=== PATIENT | female | born 1980 | race Caucasian/White ===

== ENCOUNTER 2016-08-01 12:42 | Emergency (ER) | payer OTHER ==
[~2016-08-01] VITALS: Ht 170.2 cm; Wt 111.4 kg
[2016-08-01] MEDS ORDERED: INSREG SQ (12:50)
[2016-08-01] MEDS ORDERED: INSLAN SQ (12:50)
[2016-08-01] MEDS ORDERED: LISI-662 PO (12:50)
[2016-08-01 13:05] LABS: GLUCOSE,POINT OF CARE 461 MG/DL (70-110)
[2016-08-01] MEDS ORDERED: LISINOPRIL 10 MG TABLET PO ONE (14:45)
[2016-08-01] MEDS ORDERED: AcetaZOLAMIDE 250 MG TABLET PO ONE (15:15)
[2016-08-01] MEDS ORDERED: TIMOLOL MALEATE 0.5% 5 ML OPHTHALMIC SOLUTION OS ONE (15:15)
[2016-08-01 18:32] VITALS: BP 175/89
== END 2016-08-01 18:36 | disposition home or self-care (01) ==
LOC: EMS 12:42
DX: H57.12 Ocular pain, left eye (principal); I10 Essential (primary) hypertension; E11.9 Type 2 diabetes mellitus without complications; Z79.2 Long term (current) use of antibiotics; Z91.018 Allergy to other foods
CPT/HCPCS: 82962; 99284

== ENCOUNTER 2017-01-25 13:04 | Inpatient (IN) | payer OTHER ==
[~2017-01-25] VITALS: Ht 170.2 cm; Wt 113.4 kg
[~2017-01-25 13:04] MED LIST: INSLAN SQ; INSREG SQ; LISI-662 PO
[2017-01-25 13:12] LABS: GLUCOSE,POINT OF CARE 339 MG/DL (70-110)
[2017-01-25 13:42] LABS: BASOPHILS % (AUTO) 0.3 % (0.0-2.0); EOSINOPHILS % (AUTO) 0 % (1.0-6.0); HEMATOCRIT 37.2 % (36-46); HEMOGLOBIN 12.8 g/dL (12.0-16.0); LYMPHOCYTES # (AUTO) 1.3 K/uL (1.0-4.8); LYMPHOCYTES % (AUTO) 14.1 % (22.0-44.0); MEAN CORPUSCULAR HEMOGLOBIN 29.1 pg (26.0-34.0); MEAN CORPUSCULAR HGB CONC 34.4 G/dL (31.0-37.0); MEAN CORPUSCULAR VOLUME 84 fL (80-100); MONOCYTES # (AUTO) 0.4 K/uL (0.1-1.0); MONOCYTES % (AUTO) 4.8 % (2.0-9.0); NEUTROPHILS # (AUTO) 7.3 K/uL (1.8-7.7); NEUTROPHILS % (AUTO) 80.8 % (40.0-70.0); PLATELET COUNT (AUTO) 300 K/uL (150-450); RED CELL DISTRIBUTION WIDTH 12.7 % (11.5-14.5)
[2017-01-25 13:54] LABS: ANION GAP 14 mmol/L (8-16); CALCIUM, TOTAL 9.1 mg/dL (8.8-10.5); CARBON DIOXIDE 26 mmol/L (22-29); CHLORIDE 101 mmol/L (98-107); CREATININE 0.76 mg/dL (0.60-1.30); GLOMERULAR FILTR. RATE CALC > 60 mL/min (>60); POTASSIUM 4.3 mmol/L (3.5-5.1); SODIUM SERUM 141 mmol/L (136-145); UREA NITROGEN, BLOOD 10 mg/dL (7-18)
[2017-01-25 13:59] LABS: ALANINE AMINOTRANSFERASE 28 U/L (12-78); ALBUMIN 3.3 g/dL (3.4-5.0); ASPARTATE AMINOTRANSFERASE 20 U/L (15-37); BILIRUBIN,TOTAL 0.4 mg/dL (0.1-1.0); TOTAL PROTEIN, SERUM 7.4 g/dL (6.4-8.2)
[2017-01-25] MEDS ORDERED: CLOPIDOGREL BISULFATE 75 MG TABLET PO ONE (15:45)
[2017-01-25] MEDS ORDERED: ASPIRIN 81 MG CHEWABLE TABLET PO ONE (15:45)
[2017-01-25] MEDS ORDERED: LISINOPRIL 10 MG TABLET PO ONE (15:45)
[2017-01-25] MEDS ORDERED: ACETAMINOPHEN 325 MG TABLET PO PRN ×2 (16:15)
[2017-01-25] MEDS ORDERED: HydrALAZINE HCL 20 MG/ML VIAL IVP ONE (16:15)
[2017-01-25] MEDS: AmLODIPine BESYLATE 10 MG TABLET PO SCH (16:15)
[2017-01-25] MEDS ORDERED: DEXTROSE 50%-WATER 25 GM/50 ML SYRINGE IVP PRN ×2 (16:15)
[2017-01-25] MEDS ORDERED: INSULIN REGULAR, HUMAN 100 UNITS/ML SQ PRN (16:15)
[2017-01-25] MEDS ORDERED: ONDANSETRON HCL 4 MG/2 ML VIAL IVP PRN (16:15)
[2017-01-25 16:27] LABS: GLUCOSE,POINT OF CARE 283 MG/DL (70-110)
[2017-01-25] MEDS: ATORVASTATIN CALCIUM 20 MG TABLET PO SCH (16:36)
[2017-01-25 18:25] VITALS: BP 146/71
[2017-01-25 19:36] VITALS: BP 152/77
[2017-01-25] MEDS: DOCUSATE SODIUM 100 MG CAPSULE PO SCH (20:45)
[2017-01-25] MEDS: INSULIN DETEMIR 100 UNITS/ML SQ SCH (21:33)
[2017-01-25] MEDS: INSULIN ASPART 100 UNITS/ML SQ PRN (21:34)
[2017-01-25] MEDS: HEPARIN SODIUM,PORCINE 5,000 UNITS/ML VIAL SQ SCH (23:46)
[2017-01-26] VITALS (7 sets, daily range): BP systolic 123–160; BP diastolic 79–103
[2017-01-26] MEDS: INSULIN ASPART 100 UNITS/ML SQ PRN ×4 (06:21→21:33)
[2017-01-26] MEDS ORDERED: PNEUMOCOCCAL VACCINE POLYVALENT 0.5 ML VIAL [PPSV23] IM ONE (07:45)
[2017-01-26] MEDS: ASPIRIN 81 MG CHEWABLE TABLET PO SCH (08:19)
[2017-01-26] MEDS: PANTOPRAZOLE SODIUM 40 MG DR TABLET PO SCH (08:19)
[2017-01-26] MEDS: HEPARIN SODIUM,PORCINE 5,000 UNITS/ML VIAL SQ SCH ×3 (08:19→23:55)
[2017-01-26] MEDS: AmLODIPine BESYLATE 10 MG TABLET PO SCH (08:19)
[2017-01-26] MEDS: ATORVASTATIN CALCIUM 20 MG TABLET PO SCH (08:19)
[2017-01-26] MEDS: DOCUSATE SODIUM 100 MG CAPSULE PO SCH ×2 (08:20→20:16)
[2017-01-26] MEDS ORDERED: LISINOPRIL 20 MG TABLET PO SCH (09:00)
[2017-01-26] MEDS: OxyCODONE HCL/ACETAMINOPHEN 5-325 MG TABLET PO PRN ×2 (12:02→18:34)
[2017-01-26 13:32] LABS: GLUCOSE,POINT OF CARE 391 MG/DL (70-110)
[2017-01-26] MEDS ORDERED: LISINOPRIL 20 MG TABLET PO ONE (16:00)
[2017-01-26] MEDS: CloNIDine HCL 0.1 MG TABLET PO PRN (16:03)
[2017-01-26] MEDS: MAGNESIUM HYDROXIDE SUSPENSION 30 ML UDCUP PO PRN (20:17)
[2017-01-26] MEDS: INSULIN DETEMIR 100 UNITS/ML SQ SCH (21:34)
[2017-01-27] VITALS (8 sets, daily range): BP systolic 119–160; BP diastolic 77–111
[2017-01-27] MEDS: INSULIN ASPART 100 UNITS/ML SQ PRN ×4 (06:10→21:32)
[2017-01-27] MEDS: LISINOPRIL 20 MG TABLET PO SCH (07:57)
[2017-01-27] MEDS: CloNIDine HCL 0.1 MG TABLET PO PRN (07:57)
[2017-01-27] MEDS: HEPARIN SODIUM,PORCINE 5,000 UNITS/ML VIAL SQ SCH ×3 (07:57→23:41)
[2017-01-27] MEDS: ASPIRIN 81 MG CHEWABLE TABLET PO SCH (07:57)
[2017-01-27] MEDS: DOCUSATE SODIUM 100 MG CAPSULE PO SCH ×2 (07:57→19:39)
[2017-01-27] MEDS: PANTOPRAZOLE SODIUM 40 MG DR TABLET PO SCH (07:57)
[2017-01-27] MEDS: ATORVASTATIN CALCIUM 20 MG TABLET PO SCH (07:57)
[2017-01-27] MEDS: OxyCODONE HCL/ACETAMINOPHEN 5-325 MG TABLET PO PRN ×2 (07:58→15:34)
[2017-01-27 08:07] LABS: GLUCOSE COMMENT 1 Received Meds; GLUCOSE,POINT OF CARE 266 MG/DL (70-110)
[2017-01-27] MEDS: AmLODIPine BESYLATE 10 MG TABLET PO SCH (08:59)
[2017-01-27 10:53] LABS: HEMOGLOBIN A1C 12.5 % (4.5-6.2)
[2017-01-27 11:04] LABS: THYROID STIMULATING HORMONE 1.22 uIU/mL (0.36-3.74)
[2017-01-27 18:13] LABS: GLUCOSE,POINT OF CARE 298 MG/DL (70-110)
[2017-01-27] MEDS: MAGNESIUM HYDROXIDE SUSPENSION 30 ML UDCUP PO PRN (19:39)
[2017-01-27] MEDS: CloNIDine HCL 0.1 MG TABLET PO SCH (19:39)
[2017-01-27] MEDS: INSULIN DETEMIR 100 UNITS/ML SQ SCH (21:30)
[2017-01-28 01:17] LABS: GLUCOSE,POINT OF CARE 286 MG/DL (70-110)
[2017-01-28 04:33] VITALS: BP 126/85
[2017-01-28] MEDS: INSULIN ASPART 100 UNITS/ML SQ PRN ×4 (06:03→20:11)
[2017-01-28 06:22] LABS: GLUCOSE COMMENT 1 Received Meds; GLUCOSE,POINT OF CARE 221 MG/DL (70-110)
[2017-01-28 07:09] VITALS: BP 164/100
[2017-01-28 07:14] LABS: BASOPHILS # (AUTO) 0.02 K/uL (0.00-0.20); BASOPHILS % (AUTO) 0.2 % (0.0-2.0); EOSINOPHILS # (AUTO) 0.03 K/uL (0.00-0.70); EOSINOPHILS % (AUTO) 0.36 % (1.0-6.0); HEMATOCRIT 37.4 % (36-46); HEMOGLOBIN 12.4 g/dL (12.0-16.0); LYMPHOCYTES # (AUTO) 2.1 K/uL (1.0-4.8); LYMPHOCYTES % (AUTO) 22.4 % (22.0-44.0); MEAN CORPUSCULAR HEMOGLOBIN 28.9 pg (26.0-34.0); MEAN CORPUSCULAR HGB CONC 33.2 G/dL (31.0-37.0); MEAN CORPUSCULAR VOLUME 87 fL (80-100); MONOCYTES # (AUTO) 0.6 K/uL (0.1-1.0); NEUTROPHILS # (AUTO) 6.7 K/uL (1.8-7.7); NEUTROPHILS % (AUTO) 71.1 % (40.0-70.0); PLATELET COUNT (AUTO) 218 K/uL (150-450); RED CELL DISTRIBUTION WIDTH 12.9 % (11.5-14.5)
[2017-01-28 07:17] LABS: RBC MORPHOLOGY COMMENT NORMAL RBC MORPH; WHITE BLOOD COUNT (AUTO) 11.9 K/uL (4.5-11.0)
[2017-01-28 07:20] LABS: ANION GAP 5 mmol/L (8-16); CALCIUM, TOTAL 8.9 mg/dL (8.8-10.5); CARBON DIOXIDE 31 mmol/L (22-29); CHLORIDE 101 mmol/L (98-107); CREATININE 0.62 mg/dL (0.60-1.30); GLOMERULAR FILTR. RATE CALC > 60 mL/min (>60); POTASSIUM 3.8 mmol/L (3.5-5.1); SODIUM SERUM 137 mmol/L (136-145); UREA NITROGEN, BLOOD 7 mg/dL (7-18)
[2017-01-28] MEDS ORDERED: ONDANSETRON HCL 4 MG/2 ML VIAL IM PRN (08:15)
[2017-01-28] MEDS: LISINOPRIL 20 MG TABLET PO SCH (08:16)
[2017-01-28] MEDS: PANTOPRAZOLE SODIUM 40 MG DR TABLET PO SCH (08:16)
[2017-01-28] MEDS: ATORVASTATIN CALCIUM 20 MG TABLET PO SCH (08:16)
[2017-01-28] MEDS: DOCUSATE SODIUM 100 MG CAPSULE PO SCH ×2 (08:16→20:10)
[2017-01-28] MEDS: ASPIRIN 81 MG CHEWABLE TABLET PO SCH (08:16)
[2017-01-28] MEDS: HEPARIN SODIUM,PORCINE 5,000 UNITS/ML VIAL SQ SCH ×2 (08:16→15:25)
[2017-01-28] MEDS: AmLODIPine BESYLATE 10 MG TABLET PO SCH (08:17)
[2017-01-28] MEDS: CloNIDine HCL 0.1 MG TABLET PO SCH ×2 (08:17→20:10)
[2017-01-28] MEDS: ONDANSETRON HCL 4 MG/2 ML VIAL IVP PRN ×2 (08:18→15:19)
[2017-01-28 11:18] LABS: GLUCOSE,POINT OF CARE 281 MG/DL (70-110)
[2017-01-28 11:18] LABS: GLUCOSE,POINT OF CARE 344 MG/DL (70-110)
[2017-01-28 11:22] LABS: GLUCOSE,POINT OF CARE 327 MG/DL (70-110)
[2017-01-28 11:22] LABS: GLUCOSE COMMENT 1 Received Meds; GLUCOSE,POINT OF CARE 241 MG/DL (70-110)
[2017-01-28 11:57] VITALS: BP 155/93
[2017-01-28] MEDS ORDERED: ONDANSETRON HCL 4 MG/2 ML VIAL IVP SCH (12:00)
[2017-01-28] MEDS: OxyCODONE HCL/ACETAMINOPHEN 5-325 MG TABLET PO PRN ×2 (12:47→20:15)
[2017-01-28 14:03] LABS: GLUCOSE, URINE (UA) >=1000 mg/dL (NEGATIVE); KETONES,URINE 40 mg/dL (NEGATIVE); LEUKOCYTE ESTERASE ,URINE NEGATIVE (NEGATIVE); OCCULT BLOOD,URINE NEGATIVE (NEGATIVE); PROTEIN,URINE POS 1+ (NEGATIVE)
[2017-01-28] MEDS ORDERED: DSS100 PO (14:11)
[2017-01-28] MEDS ORDERED: ASPI81 PO (14:13)
[2017-01-28] MEDS ORDERED: CLON.1 PO (14:13)
[2017-01-28] MEDS ORDERED: AMLO-512 PO (14:14)
[2017-01-28] MEDS ORDERED: ATOR20TA86 PO (14:15)
[2017-01-28] MEDS ORDERED: INSLAN SQ (14:16)
[2017-01-28 14:17] LABS: ADD UA MICROSCOPIC YES; APPEARANCE,URINE SLIGHTLY CLOUDY (CLEAR); RBC,URINE 0-2 /HPF (0-2); WBC,URINE None Seen /HPF (0-5)
[2017-01-28 14:18] LABS: SQUAMOUS EPITHELIAL CELL,UR Many /LPF (None Seen)
[2017-01-28 15:38] VITALS: BP 148/88
[2017-01-28] MEDS ORDERED: BISACODYL 10 MG RECTAL RECTAL SUPPOSITORY PR PRN (15:45)
[2017-01-28 19:44] VITALS: BP 138/93
[2017-01-28] MEDS: INSULIN DETEMIR 100 UNITS/ML SQ SCH (20:11)
[2017-01-28 23:44] VITALS: BP 121/68
[2017-01-29] MEDS: OxyCODONE HCL/ACETAMINOPHEN 5-325 MG TABLET PO PRN ×2 (00:19→09:37)
[2017-01-29] MEDS: HEPARIN SODIUM,PORCINE 5,000 UNITS/ML VIAL SQ SCH ×2 (00:19→09:31)
[2017-01-29 04:10] VITALS: BP 118/66
[2017-01-29 06:28] LABS: GLUCOSE,POINT OF CARE 255 MG/DL (70-110)
[2017-01-29 06:28] LABS: GLUCOSE COMMENT 1 Received Meds; GLUCOSE,POINT OF CARE 145 MG/DL (70-110)
[2017-01-29 06:28] LABS: GLUCOSE,POINT OF CARE 244 MG/DL (70-110)
[2017-01-29 06:28] LABS: GLUCOSE COMMENT 1 Received Meds; GLUCOSE,POINT OF CARE 262 MG/DL (70-110)
[2017-01-29] MEDS: INSULIN ASPART 100 UNITS/ML SQ PRN ×2 (06:30→12:27)
[2017-01-29 07:35] VITALS: BP 153/95
[2017-01-29] MEDS ORDERED: CLOPIDOGREL BISULFATE 75 MG TABLET PO SCH (09:00)
[2017-01-29] MEDS: PANTOPRAZOLE SODIUM 40 MG DR TABLET PO SCH (09:30)
[2017-01-29] MEDS: CloNIDine HCL 0.1 MG TABLET PO SCH (09:30)
[2017-01-29] MEDS: DOCUSATE SODIUM 100 MG CAPSULE PO SCH (09:30)
[2017-01-29] MEDS: ATORVASTATIN CALCIUM 20 MG TABLET PO SCH (09:31)
[2017-01-29] MEDS: LISINOPRIL 20 MG TABLET PO SCH (09:31)
[2017-01-29] MEDS: AmLODIPine BESYLATE 10 MG TABLET PO SCH (09:31)
[2017-01-29 11:31] VITALS: BP 139/78
[2017-01-29 16:20] VITALS: BP 148/91
[2017-01-29 16:40] LABS: BASOPHILS % (AUTO) 0.4 % (0.0-2.0); EOSINOPHILS % (AUTO) 0.3 % (1.0-6.0); HEMATOCRIT 39.8 % (36-46); HEMOGLOBIN 13.5 g/dL (12.0-16.0); LYMPHOCYTES # (AUTO) 1.6 K/uL (1.0-4.8); LYMPHOCYTES % (AUTO) 16.4 % (22.0-44.0); MEAN CORPUSCULAR HEMOGLOBIN 28.9 pg (26.0-34.0); MEAN CORPUSCULAR HGB CONC 33.9 G/dL (31.0-37.0); MEAN CORPUSCULAR VOLUME 85 fL (80-100); MONOCYTES # (AUTO) 0.8 K/uL (0.1-1.0); MONOCYTES % (AUTO) 8.1 % (2.0-9.0); NEUTROPHILS # (AUTO) 7.4 K/uL (1.8-7.7); NEUTROPHILS % (AUTO) 74.8 % (40.0-70.0); PLATELET COUNT (AUTO) 341 K/uL (150-450); RED BLOOD CELL COUNT(AUTO) 4.66 MIL/uL (4.00-5.20); WHITE BLOOD COUNT (AUTO) 9.9 K/uL (4.5-11.0)
[2017-01-31 09:18] LABS: ANTITHROMBIN, ENZYMATIC ACTVTY 88 % (75-135); PROTEIN S AG-TOTAL 83 % (60-150); PROTEIN S, FREE 88 % (57-157)
[2017-01-31 10:11] LABS: PROTEIN C AG-TOTAL 128 % (60-150)
[2017-01-31 14:17] LABS: ANTI NUCLEAR AB,DIRECT(SCREEN) Negative (Negative)
== END 2017-01-29 18:00 | DRG 65 ==
LOC: EMS 13:06 → 5S 17:23
PROVIDERS: ADMIT Internal Medicine; ATTEND Internal Medicine
PROC: 3E0234Z Introduction of Serum, Toxoid and Vaccine into Muscle, Percutaneous Approach (ICD-10-PCS; principal; 2017-01-26)
DX: I63.9 Cerebral infarction, unspecified (principal); I16.1 Hypertensive emergency; G81.91 Hemiplegia, unspecified affecting right dominant side; I67.5 Moyamoya disease; E11.65 Type 2 diabetes mellitus with hyperglycemia; I10 Essential (primary) hypertension; Z68.38 Body mass index [BMI] 38.0-38.9, adult; E66.01 Morbid (severe) obesity due to excess calories; G43.909 Migraine, unspecified, not intractable, without status migrainosus; Z79.4 Long term (current) use of insulin; Z79.82 Long term (current) use of aspirin; Z23 Encounter for immunization; Z91.048 Other nonmedicinal substance allergy status
CPT/HCPCS: 70450; 70544; 70551; 81241; 82607; 82746; 82962; 83036; 84443; 85300; 85301; 85302; 85305; 85306; 86038; 86147; 90471; 93005; 93306; 93880; 93970; 96374; 97112; 97162; 97167; 97530; 99285; J0360; J1644; J2405

== ENCOUNTER 2017-05-02 15:02 | Emergency (ER) | payer MEDICAID, OTHER ==
[~2017-05-02] VITALS: Ht 175.3 cm; Wt 100.0 kg
[~2017-05-02 15:02] MED LIST changes: +AMLO-512 PO; +ASPI81 PO; +ATOR20TA86 PO; +CLON-570 PO; +DSS100 PO
[2017-05-02] MEDS ORDERED: TOPI25 PO (15:16)
[2017-05-02] MEDS ORDERED: OXYC-522 PO (15:16)
[2017-05-02] MEDS ORDERED: GABA-531 PO (15:16)
[2017-05-02] MEDS ORDERED: METF500T4 PO (15:16)
[2017-05-02] MEDS ORDERED: LISI-662 PO (15:16)
[2017-05-02] MEDS ORDERED: DICL2100G TP (15:16)
[2017-05-02] MEDS ORDERED: OXYC-530 PO (15:16)
[2017-05-02] MEDS ORDERED: HYDR25TA PO (15:16)
[2017-05-02] MEDS ORDERED: CLON.2 PO (15:16)
[2017-05-02] MEDS ORDERED: CLOP75 PO (15:16)
[2017-05-02 15:18] LABS: GLUCOSE,POINT OF CARE 372 MG/DL (70-110)
[2017-05-02] MEDS ORDERED: GABAPENTIN 100 MG CAPSULE PO ONE (16:00)
[2017-05-02] MEDS ORDERED: HYDROCODONE/ACETAMINOPHEN 5-325 MG TABLET PO ONE (16:00)
[2017-05-02 19:02] VITALS: BP 117/78
== END 2017-05-02 19:02 | disposition home or self-care (01) ==
LOC: EMS 15:04
DX: Z76.0 Encounter for issue of repeat prescription (principal); G89.29 Other chronic pain; Z86.73 Personal history of transient ischemic attack (TIA), and cerebral infarction without residual deficits; I10 Essential (primary) hypertension; E11.9 Type 2 diabetes mellitus without complications; Z91.02 Food additives allergy status
CPT/HCPCS: 82962; 99283

== ENCOUNTER 2017-05-07 20:28 | Inpatient (IN) | payer MEDICAID ==
[~2017-05-07] VITALS: Ht 170.2 cm; Wt 107.7 kg
[~2017-05-07 20:28] MED LIST changes: +CLON.2 PO; +CLOP75 PO; +DICL2100G TP; -DSS100 PO; +GABA-531 PO; +HYDR25TA PO; -INSLAN SQ; -INSREG SQ; +METF500T4 PO; +OXYC-522 PO; +OXYC-530 PO; +TOPI25 PO
[2017-05-07] MEDS ORDERED: 0.9% SODIUM CHLORIDE 10 ML SYRINGE IVP PRN ×2 (21:55→23:00)
[2017-05-07 22:18] LABS: BASOPHILS % (AUTO) 0.3 % (0.0-2.0); EOSINOPHILS % (AUTO) 1.5 % (1.0-6.0); HEMATOCRIT 36.5 % (36-46); HEMOGLOBIN 12.2 g/dL (12.0-16.0); LYMPHOCYTES # (AUTO) 1.3 K/uL (1.0-4.8); LYMPHOCYTES % (AUTO) 14.6 % (22.0-44.0); MEAN CORPUSCULAR HEMOGLOBIN 28.3 pg (26.0-34.0); MEAN CORPUSCULAR HGB CONC 33.5 G/dL (31.0-37.0); MEAN CORPUSCULAR VOLUME 84 fL (80-100); MONOCYTES # (AUTO) 0.6 K/uL (0.1-1.0); MONOCYTES % (AUTO) 7.1 % (2.0-9.0); NEUTROPHILS % (AUTO) 76.5 % (40.0-70.0); PLATELET COUNT (AUTO) 406 K/uL (150-450); RED BLOOD CELL COUNT(AUTO) 4.32 MIL/uL (4.00-5.20); RED CELL DISTRIBUTION WIDTH 12.7 % (11.5-14.5); WHITE BLOOD COUNT (AUTO) 9.1 K/uL (4.5-11.0)
[2017-05-07 22:28] LABS: ANION GAP 8 mmol/L (8-16); CALCIUM, TOTAL 9.2 mg/dL (8.8-10.5); CARBON DIOXIDE 27 mmol/L (22-29); CHLORIDE 101 mmol/L (98-107); CREATININE 0.91 mg/dL (0.60-1.30); GLOMERULAR FILTR. RATE CALC > 60 mL/min (>60); POTASSIUM 3.9 mmol/L (3.5-5.1); SODIUM SERUM 136 mmol/L (136-145); UREA NITROGEN, BLOOD 12 mg/dL (7-18)
[2017-05-07 22:29] LABS: PROTHROMBIN TIME 10.3 SEC (9.4-11.6)
[2017-05-07 22:34] LABS: ALANINE AMINOTRANSFERASE 26 U/L (12-78); ALBUMIN 3.6 g/dL (3.4-5.0); ASPARTATE AMINOTRANSFERASE 13 U/L (15-37); BILIRUBIN,TOTAL 0.3 mg/dL (0.1-1.0); CREATINE KINASE, TOTAL 48 U/L (26-192); TOTAL PROTEIN, SERUM 7.3 g/dL (6.4-8.2)
[2017-05-07] MEDS ORDERED: OxyCODONE HCL/ACETAMINOPHEN 5-325 MG TABLET PO ONE (23:00)
[2017-05-07] MEDS ORDERED: ACETAMINOPHEN 325 MG TABLET PO PRN (23:00)
[2017-05-07] MEDS ORDERED: ONDANSETRON HCL 4 MG/2 ML VIAL IVP PRN (23:00)
[2017-05-07] MEDS ORDERED: ASPIRIN 325 MG TABLET PO ONE (23:00)
[2017-05-07] MEDS ORDERED: OxyCODONE HCL/ACETAMINOPHEN 5-325 MG TABLET PO PRN (23:00)
[2017-05-07 23:46] VITALS: BP 138/80
[2017-05-07] MEDS ORDERED: INSU100V12 SQ (23:47)
[2017-05-07] MEDS ORDERED: LACT10SO8 PO (23:47)
[2017-05-07] MEDS ORDERED: INSNOV SQ (23:47)
[2017-05-08 04:20] VITALS: BP 98/69
[2017-05-08] MEDS ORDERED: ACETAMINOPHEN 325 MG TABLET PO PRN (05:15)
[2017-05-08] MEDS ORDERED: DEXTROSE 50%-WATER 25 GM/50 ML SYRINGE IVP PRN (05:15)
[2017-05-08] MEDS ORDERED: ONDANSETRON HCL 4 MG/2 ML VIAL IVP PRN (05:15)
[2017-05-08] MEDS ORDERED: BISACODYL 10 MG RECTAL RECTAL SUPPOSITORY PR PRN (05:15)
[2017-05-08] MEDS ORDERED: MAGNESIUM HYDROXIDE SUSPENSION 30 ML UDCUP PO PRN (05:15)
[2017-05-08] MEDS ORDERED: 0.9% SODIUM CHLORIDE 10 ML SYRINGE IVP PRN (05:15)
[2017-05-08 05:58] LABS: BASOPHILS % (AUTO) 0.1 % (0.0-2.0); EOSINOPHILS % (AUTO) 3.3 % (1.0-6.0); HEMATOCRIT 33.7 % (36-46); HEMOGLOBIN 11.3 g/dL (12.0-16.0); LYMPHOCYTES # (AUTO) 2.6 K/uL (1.0-4.8); MEAN CORPUSCULAR HEMOGLOBIN 28.3 pg (26.0-34.0); MEAN CORPUSCULAR HGB CONC 33.5 G/dL (31.0-37.0); MEAN CORPUSCULAR VOLUME 84 fL (80-100); MONOCYTES # (AUTO) 0.7 K/uL (0.1-1.0); MONOCYTES % (AUTO) 8.4 % (2.0-9.0); NEUTROPHILS % (AUTO) 58.2 % (40.0-70.0); PLATELET COUNT (AUTO) 368 K/uL (150-450); RED CELL DISTRIBUTION WIDTH 12.9 % (11.5-14.5); WHITE BLOOD COUNT (AUTO) 8.7 K/uL (4.5-11.0)
[2017-05-08 06:11] LABS: CALCIUM, TOTAL 8.6 mg/dL (8.8-10.5); CREATININE 1.17 mg/dL (0.60-1.30); POTASSIUM 3.7 mmol/L (3.5-5.1)
[2017-05-08] MEDS: INSULIN ASPART 100 UNITS/ML SQ PRN ×4 (06:11→21:28)
[2017-05-08 06:18] LABS: ALBUMIN 3.2 g/dL (3.4-5.0); BILIRUBIN,TOTAL 0.2 mg/dL (0.1-1.0); CHOL/HDL RATIO 3.7 (3.9-5.7); MAGNESIUM 1.9 mg/dL (1.80-2.40); TOTAL PROTEIN, SERUM 6.7 g/dL (6.4-8.2)
[2017-05-08 06:21] LABS: HEMOGLOBIN A1C 10.5 % (4.5-6.2)
[2017-05-08 07:46] VITALS: BP 96/58
[2017-05-08] MEDS: ASPIRIN 81 MG CHEWABLE TABLET PO SCH (09:36)
[2017-05-08] MEDS: GABAPENTIN 300 MG CAPSULE PO SCH ×3 (09:36→21:24)
[2017-05-08] MEDS: CLOPIDOGREL BISULFATE 75 MG TABLET PO SCH (09:36)
[2017-05-08] MEDS: PANTOPRAZOLE SODIUM 40 MG DR TABLET PO SCH (09:37)
[2017-05-08] MEDS: DICLOFENAC SODIUM 1% 100 GM GEL [2GM] TP SCH ×4 (09:38→21:23)
[2017-05-08 11:22] VITALS: BP 126/71
[2017-05-08] MEDS: OxyCODONE HCL/ACETAMINOPHEN 5-325 MG TABLET PO PRN ×2 (12:06→17:58)
[2017-05-08 16:05] VITALS: BP 123/78
[2017-05-08 20:34] VITALS: BP 126/75
[2017-05-08 20:38] LABS: GLUCOSE COMMENT 1 Received Meds; GLUCOSE,POINT OF CARE 293 MG/DL (70-110)
[2017-05-08 20:38] LABS: GLUCOSE COMMENT 1 Received Meds; GLUCOSE,POINT OF CARE 300 MG/DL (70-110)
[2017-05-08 20:42] LABS: GLUCOSE COMMENT 1 Received Meds; GLUCOSE,POINT OF CARE 231 MG/DL (70-110)
[2017-05-08 20:43] LABS: GLUCOSE COMMENT 1 Received Meds; GLUCOSE,POINT OF CARE 199 MG/DL (70-110)
[2017-05-08] MEDS ORDERED: ATORVASTATIN CALCIUM 20 MG TABLET PO SCH (21:00)
[2017-05-08 23:24] VITALS: BP 137/92
[2017-05-09] MEDS: INSULIN ASPART 100 UNITS/ML SQ PRN (06:47)
[2017-05-09 06:48] VITALS: BP 134/85
[2017-05-09 07:22] LABS: GLUCOSE COMMENT 1 Received Meds; GLUCOSE,POINT OF CARE 239 MG/DL (70-110)
[2017-05-09 07:35] VITALS: BP 128/84
[2017-05-09] MEDS: CLOPIDOGREL BISULFATE 75 MG TABLET PO SCH (08:04)
[2017-05-09] MEDS: PANTOPRAZOLE SODIUM 40 MG DR TABLET PO SCH (08:05)
[2017-05-09] MEDS: ASPIRIN 81 MG CHEWABLE TABLET PO SCH (08:05)
[2017-05-09] MEDS: OxyCODONE HCL/ACETAMINOPHEN 5-325 MG TABLET PO PRN (08:05)
[2017-05-09] MEDS: GABAPENTIN 300 MG CAPSULE PO SCH (08:05)
[2017-05-09] MEDS: DICLOFENAC SODIUM 1% 100 GM GEL [2GM] TP SCH (08:06)
== END 2017-05-09 09:30 | disposition left against medical advice (07) | DRG 47 ==
LOC: EMS 20:30 → 5N 22:45
PROVIDERS: ADMIT Internal Medicine; ATTEND Internal Medicine
DX: G45.9 Transient cerebral ischemic attack, unspecified (principal); E66.01 Morbid (severe) obesity due to excess calories; I10 Essential (primary) hypertension; G43.909 Migraine, unspecified, not intractable, without status migrainosus; E11.9 Type 2 diabetes mellitus without complications; G89.29 Other chronic pain; Z79.02 Long term (current) use of antithrombotics/antiplatelets; Z79.82 Long term (current) use of aspirin; Z68.36 Body mass index [BMI] 36.0-36.9, adult; Z86.73 Personal history of transient ischemic attack (TIA), and cerebral infarction without residual deficits; Z88.8 Allergy status to other drugs, medicaments and biological substances
CPT/HCPCS: 70544; 70547; 70551; 82962; 83036; 83735; 93005; 93306; 99285

== ENCOUNTER 2017-05-19 16:41 | Emergency (ER) | payer MEDICAID ==
[~2017-05-19] VITALS: Ht 172.7 cm; Wt 104.5 kg
[~2017-05-19 16:41] MED LIST changes: +INSNOV SQ; +INSU100V12 SQ; +LACT10SO8 PO
[2017-05-19 17:39] LABS: BASOPHILS # (AUTO) 0.03 K/uL (0.00-0.20); BASOPHILS % (AUTO) 0.3 % (0.0-2.0); EOSINOPHILS # (AUTO) 0.08 K/uL (0.00-0.70); EOSINOPHILS % (AUTO) 0.88 % (1.0-6.0); HEMATOCRIT 40.2 % (36-46); HEMOGLOBIN 13.3 g/dL (12.0-16.0); LYMPHOCYTES # (AUTO) 1.7 K/uL (1.0-4.8); LYMPHOCYTES % (AUTO) 19.2 % (22.0-44.0); MEAN CORPUSCULAR HEMOGLOBIN 28.1 pg (26.0-34.0); MEAN CORPUSCULAR HGB CONC 33.1 G/dL (31.0-37.0); MEAN CORPUSCULAR VOLUME 85 fL (80-100); MONOCYTES # (AUTO) 0.7 K/uL (0.1-1.0); MONOCYTES % (AUTO) 7.5 % (2.0-9.0); NEUTROPHILS # (AUTO) 6.5 K/uL (1.8-7.7); NEUTROPHILS % (AUTO) 72.1 % (40.0-70.0); PLATELET COUNT (AUTO) 342 K/uL (150-450); RED BLOOD CELL COUNT(AUTO) 4.75 MIL/uL (4.00-5.20); RED CELL DISTRIBUTION WIDTH 12.5 % (11.5-14.5)
[2017-05-19 18:09] LABS: CALCIUM, TOTAL 9.5 mg/dL (8.8-10.5); CREATININE 1.17 mg/dL (0.60-1.30); POTASSIUM 4.1 mmol/L (3.5-5.1)
[2017-05-19 18:15] LABS: BILIRUBIN,TOTAL 0.4 mg/dL (0.1-1.0); TOTAL PROTEIN, SERUM 8.6 g/dL (6.4-8.2)
[2017-05-19] MEDS ORDERED: TOPI100T37 PO (18:59)
[2017-05-19] MEDS ORDERED: SODIUM CHLORIDE 0.9% 1,000 ML IV ONE (19:00)
[2017-05-19] MEDS ORDERED: KETOROLAC TROMETHAMINE 30 MG/ML VIAL IVP ONE (19:00)
[2017-05-19 19:11] LABS: APPEARANCE,URINE CLEAR (CLEAR); GLUCOSE, URINE (UA) 100 mg/dL (NEGATIVE); KETONES,URINE 15 mg/dL (NEGATIVE); LEUKOCYTE ESTERASE ,URINE NEGATIVE (NEGATIVE); OCCULT BLOOD,URINE NEGATIVE (NEGATIVE); PH,URINE 5.5 (5.0-8.0); PROTEIN,URINE NEGATIVE (NEGATIVE)
[2017-05-19 19:12] LABS: ADD UA MICROSCOPIC YES
[2017-05-19 19:19] LABS: RBC,URINE 0-2 /HPF (0-2); SQUAMOUS EPITHELIAL CELL,UR Many /LPF (None Seen); WBC,URINE 0-2 /HPF (0-5)
[2017-05-19 20:00] VITALS: BP 124/98
[2017-05-19] MEDS ORDERED: HYDROCODONE/ACETAMINOPHEN 10-325 MG TABLET PO ONE (20:30)
== END 2017-05-19 20:48 | disposition home or self-care (01) ==
LOC: EMS 16:42
DX: S40.021A Contusion of right upper arm, initial encounter (principal); L89.151 Pressure ulcer of sacral region, stage 1; E11.9 Type 2 diabetes mellitus without complications; I10 Essential (primary) hypertension; Z86.73 Personal history of transient ischemic attack (TIA), and cerebral infarction without residual deficits; Z79.82 Long term (current) use of aspirin; Z91.018 Allergy to other foods; Z79.4 Long term (current) use of insulin; W18.30XA Fall on same level, unspecified, initial encounter; Y93.89 Activity, other specified; Y92.098 Other place in other non-institutional residence as the place of occurrence of the external cause; Y99.8 Other external cause status
CPT/HCPCS: 36415; 73030; 73090; 80053; 81001; 82962; 85025; 96361; 96374; 99285; J1885; J7030

== ENCOUNTER 2017-05-21 12:46 | Emergency (ER) | payer MEDICAID ==
[~2017-05-21] VITALS: Ht 175.3 cm; Wt 113.6 kg
[~2017-05-21 12:46] MED LIST changes: +TOPI100T37 PO; -TOPI25 PO
[2017-05-21 13:13] LABS: GLUCOSE,POINT OF CARE 201 MG/DL (70-110)
[2017-05-21] MEDS ORDERED: HYDROCODONE/ACETAMINOPHEN 5-325 MG TABLET PO ONE ×2 (15:00→19:45)
[2017-05-21 18:21] VITALS: BP 114/68
== END 2017-05-21 20:14 | disposition home or self-care (01) ==
LOC: EMS 12:47
DX: S00.83XA Contusion of other part of head, initial encounter (principal); S10.93XA Contusion of unspecified part of neck, initial encounter; S40.021A Contusion of right upper arm, initial encounter; S80.11XA Contusion of right lower leg, initial encounter; W19.XXXA Unspecified fall, initial encounter; Y93.89 Activity, other specified; Y92.89 Other specified places as the place of occurrence of the external cause; Y99.8 Other external cause status; Z91.040 Latex allergy status; E11.9 Type 2 diabetes mellitus without complications; I10 Essential (primary) hypertension; Z79.4 Long term (current) use of insulin; Z79.82 Long term (current) use of aspirin; Z86.73 Personal history of transient ischemic attack (TIA), and cerebral infarction without residual deficits
CPT/HCPCS: 70450; 72125; 72170; 73552; 82962; 99284

== ENCOUNTER 2017-07-09 05:14 | Inpatient (IN) | payer MEDICAID, OTHER ==
[~2017-07-09] VITALS: Ht 170.2 cm; Wt 100.2 kg
[~2017-07-09 05:14] MED LIST changes: -LACT10SO8 PO
[2017-07-09] MEDS ORDERED: INSLAN SQ (05:22)
[2017-07-09 05:42] LABS: GLUCOSE,POINT OF CARE 99 MG/DL (70-110)
[2017-07-09 06:08] LABS: GLUCOSE,POINT OF CARE 98 MG/DL (70-110)
[2017-07-09 06:42] LABS: GLUCOSE,POINT OF CARE 70 MG/DL (70-110)
[2017-07-09 06:59] LABS: BASOPHILS % (AUTO) 0.3 % (0.0-2.0); EOSINOPHILS % (AUTO) 0.2 % (1.0-6.0); HEMATOCRIT 33.7 % (36-46); HEMOGLOBIN 11.3 g/dL (12.0-16.0); LYMPHOCYTES # (AUTO) 1.4 K/uL (1.0-4.8); LYMPHOCYTES % (AUTO) 13.5 % (22.0-44.0); MEAN CORPUSCULAR HEMOGLOBIN 28.6 pg (26.0-34.0); MEAN CORPUSCULAR HGB CONC 33.6 G/dL (31.0-37.0); MEAN CORPUSCULAR VOLUME 85 fL (80-100); MONOCYTES # (AUTO) 0.4 K/uL (0.1-1.0); MONOCYTES % (AUTO) 4.2 % (2.0-9.0); NEUTROPHILS # (AUTO) 8.4 K/uL (1.8-7.7); NEUTROPHILS % (AUTO) 81.8 % (40.0-70.0); PLATELET COUNT (AUTO) 481 K/uL (150-450); RED BLOOD CELL COUNT(AUTO) 3.96 MIL/uL (4.00-5.20); RED CELL DISTRIBUTION WIDTH 13.7 % (11.5-14.5)
[2017-07-09 07:13] LABS: GLUCOSE,POINT OF CARE 62 MG/DL (70-110)
[2017-07-09] MEDS ORDERED: DEXTROSE 5%-0.9% SODIUM CHL 1,000 ML IV ONE (07:15)
[2017-07-09 07:25] LABS: ANION GAP 11 mmol/L (8-16); CALCIUM, TOTAL 9.4 mg/dL (8.8-10.5); CARBON DIOXIDE 25 mmol/L (22-29); CHLORIDE 106 mmol/L (98-107); CREATININE 0.93 mg/dL (0.60-1.30); GLOMERULAR FILTR. RATE CALC > 60 mL/min (>60); GLUCOSE,RANDOM 83 mg/dL (70-110); POTASSIUM 3.9 mmol/L (3.5-5.1); SODIUM SERUM 142 mmol/L (136-145); UREA NITROGEN, BLOOD 14 mg/dL (7-18)
[2017-07-09 07:30] LABS: ALANINE AMINOTRANSFERASE 35 U/L (12-78); ALBUMIN 3.5 g/dL (3.4-5.0); ALKALINE PHOSPHATASE 74 U/L (46-116); ASPARTATE AMINOTRANSFERASE 22 U/L (15-37); BILIRUBIN,TOTAL 0.3 mg/dL (0.1-1.0); TOTAL PROTEIN, SERUM 7.7 g/dL (6.4-8.2)
[2017-07-09] MEDS ORDERED: 0.9% SODIUM CHLORIDE 10 ML SYRINGE IVP PRN (07:30)
[2017-07-09] MEDS ORDERED: ACETAMINOPHEN 325 MG TABLET PO PRN (07:30)
[2017-07-09] MEDS ORDERED: ONDANSETRON HCL 4 MG/2 ML VIAL IVP PRN ×2 (07:30→19:45)
[2017-07-09] MEDS ORDERED: OxyCODONE HCL/ACETAMINOPHEN 5-325 MG TABLET PO ONE ×2 (08:45→13:45)
[2017-07-09] MEDS ORDERED: DEXTROSE 50%-WATER 25 GM/50 ML SYRINGE IVP PRN ×2 (10:00→19:45)
[2017-07-09] MEDS: WATER IV SCH ×2 (10:00→16:44)
[2017-07-09] MEDS: DEXTROSE 10% IV SCH ×2 (10:00→16:44)
[2017-07-09] MEDS: SODIUM CHLORIDE IV SCH ×2 (10:00→16:44)
[2017-07-09 10:20] VITALS: BP 135/90
[2017-07-09 10:23] LABS: GLUCOMETER DEV NAME(LOC) 6N 1E; GLUCOSE,POINT OF CARE 117 MG/DL (70-110)
[2017-07-09 12:10] VITALS: BP 126/76
[2017-07-09 12:53] LABS: GLUCOMETER DEV NAME(LOC) 6N 1E; GLUCOSE,POINT OF CARE 116 MG/DL (70-110)
[2017-07-09] MEDS ORDERED: CLON.3 PO (13:50)
[2017-07-09 15:13] LABS: GLUCOMETER DEV NAME(LOC) 6N 2D; GLUCOSE,POINT OF CARE 160 MG/DL (70-110)
[2017-07-09 15:55] VITALS: BP 118/74
[2017-07-09 18:02] LABS: GLUCOMETER DEV NAME(LOC) 6N 2D; GLUCOSE,POINT OF CARE 132 MG/DL (70-110)
[2017-07-09] MEDS: OxyCODONE HCL/ACETAMINOPHEN 5-325 MG TABLET PO PRN (18:47)
[2017-07-09] MEDS ORDERED: BISACODYL 10 MG RECTAL RECTAL SUPPOSITORY PR PRN (19:45)
[2017-07-09] MEDS ORDERED: INSULIN ASPART 100 UNITS/ML SQ PRN (19:45)
[2017-07-09] MEDS ORDERED: MAGNESIUM HYDROXIDE SUSPENSION 30 ML UDCUP PO PRN (19:45)
[2017-07-09] MEDS ORDERED: ALBUTEROL SULFATE 2.5 MG/0.5 ML NEB SOLUTION NEB PRN (19:45)
[2017-07-09] MEDS ORDERED: IPRATROPIUM BROMIDE 0.5 MG/2.5 ML NEB SOLUTION NEB PRN (19:45)
[2017-07-09 20:15] VITALS: BP 131/85
[2017-07-09] MEDS ORDERED: ATORVASTATIN CALCIUM 20 MG TABLET PO SCH (21:00)
[2017-07-10 00:13] VITALS: BP 126/81
[2017-07-10 05:44] VITALS: BP 115/76
[2017-07-10 06:27] LABS: BASOPHILS % (AUTO) 0.3 % (0.0-2.0); EOSINOPHILS % (AUTO) 1.1 % (1.0-6.0); HEMATOCRIT 33.2 % (36-46); LYMPHOCYTES # (AUTO) 2.8 K/uL (1.0-4.8); LYMPHOCYTES % (AUTO) 30.4 % (22.0-44.0); MEAN CORPUSCULAR HEMOGLOBIN 28.3 pg (26.0-34.0); MEAN CORPUSCULAR HGB CONC 33.1 G/dL (31.0-37.0); MEAN CORPUSCULAR VOLUME 85 fL (80-100); MONOCYTES # (AUTO) 0.9 K/uL (0.1-1.0); MONOCYTES % (AUTO) 9.1 % (2.0-9.0); NEUTROPHILS # (AUTO) 5.5 K/uL (1.8-7.7); NEUTROPHILS % (AUTO) 59.1 % (40.0-70.0); PLATELET COUNT (AUTO) 471 K/uL (150-450); RED BLOOD CELL COUNT(AUTO) 3.88 MIL/uL (4.00-5.20); RED CELL DISTRIBUTION WIDTH 13.8 % (11.5-14.5)
[2017-07-10 06:38] LABS: GLUCOMETER DEV NAME(LOC) PV 4E; GLUCOSE,POINT OF CARE 147 MG/DL (70-110)
[2017-07-10 07:16] LABS: ALANINE AMINOTRANSFERASE 34 U/L (12-78); ALBUMIN 3.4 g/dL (3.4-5.0); ALKALINE PHOSPHATASE 76 U/L (46-116); ANION GAP 8 mmol/L (8-16); ASPARTATE AMINOTRANSFERASE 17 U/L (15-37); BILIRUBIN,TOTAL 0.3 mg/dL (0.1-1.0); CARBON DIOXIDE 24 mmol/L (22-29); CHLORIDE 108 mmol/L (98-107); CHOL/HDL RATIO 2.7 (3.9-5.7); CHOLESTEROL 112 mg/dL (131-200); CREATINE KINASE MB 1.2 ng/mL (0-5); CREATINE KINASE, TOTAL 158 U/L (26-192); CREATININE 0.85 mg/dL (0.60-1.30); FREE T4 (FREE THYROXINE) 1.12 ng/dL (0.76-1.46); GLOMERULAR FILTR. RATE CALC > 60 mL/min (>60); GLUCOSE,RANDOM 157 mg/dL (70-110); HDL CHOLESTEROL 41 mg/dL (40-60); LDL CHOL (CALC.) 57 mg/dL (0-130); POTASSIUM 4.2 mmol/L (3.5-5.1); SODIUM SERUM 140 mmol/L (136-145); THYROID STIMULATING HORMONE 2.91 uIU/mL (0.36-3.74); TOTAL PROTEIN, SERUM 7.6 g/dL (6.4-8.2); TRIGLYCERIDES 70 mg/dL (15-150); UREA NITROGEN, BLOOD 9 mg/dL (7-18)
[2017-07-10 07:18] LABS: HEMOGLOBIN A1C 7.6 % (4.5-6.2)
[2017-07-10 08:39] LABS: FOLATE SERUM 7.3 ng/mL (5.4-)
[2017-07-10 08:47] LABS: GLUCOMETER DEV NAME(LOC) 6N 2D; GLUCOSE,POINT OF CARE 136 MG/DL (70-110)
[2017-07-10 09:00] VITALS: BP 137/90
[2017-07-10] MEDS ORDERED: ENOXAPARIN SODIUM 40 MG/0.4 ML PF SYRINGE SQ SCH (09:00)
[2017-07-10] MEDS ORDERED: ASPIRIN 81 MG CHEWABLE TABLET PO SCH (09:00)
[2017-07-10] MEDS ORDERED: PANTOPRAZOLE SODIUM 40 MG/VIAL IVP SCH (09:00)
[2017-07-10] MEDS: OxyCODONE HCL/ACETAMINOPHEN 5-325 MG TABLET PO PRN (09:12)
[2017-07-10 12:18] LABS: GLUCOMETER DEV NAME(LOC) PV 4E; GLUCOSE,POINT OF CARE 245 MG/DL (70-110)
[2017-07-10 12:40] VITALS: BP 152/95
[2017-07-10] MEDS ORDERED: INSULIN DETEMIR 100 UNITS/ML SQ ONE (12:45)
[2017-07-10] MEDS ORDERED: INSU100V12 SQ (17:18)
[2017-07-10 17:43] LABS: GLUCOMETER DEV NAME(LOC) PV 4E; GLUCOSE,POINT OF CARE 180 MG/DL (70-110)
[2017-07-11] MEDS ORDERED: INSULIN DETEMIR 100 UNITS/ML SQ SCH (09:00)
== END 2017-07-10 17:40 | disposition home or self-care (01) | DRG 637 ==
LOC: EMS 05:15 → 6N 08:36 → 4E 07-10 06:51
PROVIDERS: ADMIT Internal Medicine; ATTEND Internal Medicine
DX: E11.649 Type 2 diabetes mellitus with hypoglycemia without coma (principal); G93.40 Encephalopathy, unspecified; I69.351 Hemiplegia and hemiparesis following cerebral infarction affecting right dominant side; I10 Essential (primary) hypertension; D64.9 Anemia, unspecified; E78.5 Hyperlipidemia, unspecified; K21.9 Gastro-esophageal reflux disease without esophagitis; R26.9 Unspecified abnormalities of gait and mobility; E11.40 Type 2 diabetes mellitus with diabetic neuropathy, unspecified; Z91.040 Latex allergy status; Z91.048 Other nonmedicinal substance allergy status
CPT/HCPCS: 70450; 82306; 82607; 82746; 82962; 83036; 83735; 84439; 84443; 96360; 96361; 99285; C9113; J1650; J7042; J7131